=== PATIENT | female | born 1975 | race Caucasian/White ===

== ENCOUNTER 2022-01-02 14:04 | Outpatient (REF) | payer OTHER, SELFPAY ==
[2022-01-02 14:58] LABS: Basophils Absolute Auto 0.03 K/uL (0.00-0.30); Basophils Percent Auto 0.7 % (0.0-3.0); Eosinophils Percent Auto 2.2 % (0.0-7.0); Hematocrit 38.5 % (33.0-51.0); Hemoglobin* 13.1 gm/dL (12.0-16.0); Lymphocytes Absolute Auto 1.92 K/uL (0.90-2.90); Lymphocytes Percent Auto 41.9 % (20-44); Mean Corpuscular HGB Conc 34 gm/dL (32-36); Mean Corpuscular Hemoglobin 32 pg (26-34); Mean Corpuscular Volume 93 fL (80-100); Monocytes Percent Auto 6.1 % (0.0-11.0); Neutrophils Absolute Auto 2.25 K/uL (1.7-7.0); Neutrophils Percent Auto 49.1 % (42.0-72.0); Platelet Count* 309 K/uL (140-440); RDW Coefficient of Variation % 11.6 % (11.5-15.5); Red Blood Count 4.14 m/uL (4.00-5.20); White Blood Count* 4.58 K/uL (4.50-11.00)
[2022-01-02 15:00] LABS: Slide Review Reflex No
[2022-01-02 15:11] LABS: Hemoglobin A1C* 4.99 % (0-5.6)
[2022-01-02 15:16] LABS: Albumin* 4.6 g/dL (3.3-5.0); Chloride* 103 mmol/L (96-114); Potassium* 4.3 mmol/L (3.6-5.1); Sodium* 139 mmol/L (135-149)
[2022-01-02 15:18] LABS: Cholesterol* 239 mg/dL (90-199)
[2022-01-02 15:19] LABS: Alanine Aminotransferase* 9 U/L (4-35); Alkaline Phosphatase* 67 U/L (40-150); Aspartate Amino Transferase* 21 U/L (12-35); Bilirubin Total* 0.4 mg/dL (0.1-1.5); Blood Urea Nitrogen* 13 mg/dL (5-24); Carbon Dioxide* 25 mmol/L (20-32); Creatinine* 0.7 mg/dL (0.5-1.5); Estimated Glomerular Filt Rate 109 ml/min; Glucose* 96 mg/dL (60-115); Total Protein* 7.1 g/dL (6.0-8.3); Triglycerides* 161 mg/dL (40-149)
[2022-01-02 15:20] LABS: Calcium* 9.5 mg/dL (8.4-10.6); HDL Cholesterol* 45 mg/dL (>=50); Iron* 105 ug/dL (37-170); LDL Cholesterol Calculated 162 mg/dL (<100)
[2022-01-02 15:36] LABS: Free T4 Free Thyroxine* 1.28 ng/dL (0.70-1.85)
[2022-01-02 15:37] LABS: Vitamin D 25 Hydroxy* 48 ng/mL (30-80)
[2022-01-02 15:54] LABS: Ferritin* 50.8 ng/mL (6.24-137.0)
[2022-01-02 16:08] LABS: Vitamin B12* 345 pg/mL (243-894)
[2022-01-03 23:21] LABS: TPO Antibody <0.3 IU/mL (0.0-9.0); Thyroglobulin Antibody <0.9 IU/mL (0.0-4.0)
[2022-01-04 00:21] LABS: Insulin, Fasting 7 uIU/mL (3-25)
[2022-01-04 02:12] LABS: Free T3 2.7 pg/mL (2.5-4.3)
== END 2022-01-02 14:05 | disposition home or self-care (01) ==
LOC: LAB 14:04
DX: K59.00 Constipation, unspecified (principal); R53.83 Other fatigue; N92.0 Excessive and frequent menstruation with regular cycle
CPT/HCPCS: 36415; 80053; 80061; 82306; 82607; 82728; 83036; 83525; 83540; 84439; 84443; 84481; 85025

== ENCOUNTER 2023-10-07 07:28 | Outpatient (CLI) | payer OTHER, SELFPAY ==
--- OUTSIDE RECORDS SUMMARY | 2023-10-09 03:49 | XMS_ITS | Clinical Summary ---
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 60 g 3 07/17/2023 Active nystatin (MYCOSTATIN) ointmentIndicati ons:Yeast dermatitis Apply topically to affected area(s) two times daily. 15 g 3 07/17/2023 Active fluconazole (DIFLUCAN) 150 mg tabletIndication s:Yeast dermatitis Take 1 Tablet (150 mg) by mouth one time for 1 dose. Then take the second tab in 4 days if symptoms persist. 2 Tablet 09/08/2023 09/15/2023 Discontinued (Reorder (E-cancel not sent)) fluconazole (DIFLUCAN) 150 mg tabletIndication s:Yeast dermatitis Take 1 Tablet (150 mg) by mouth one time for 1 dose. Then take the second tab in 4 days if symptoms persist. 2 Tablet 09/15/2023 09/15/2023 cephalexin (KEFLEX) 500 mg capsuleIndicatio ns:Yeast dermatitis Take 1 Capsule (500 mg) by mouth four times daily for 7 days. 28 Capsule 09/15/2023 09/22/2023 Active Problems Problem Noted Date Diagnosed Date Plantar fasciitis of right foot 04/23/2017 Plantar fasciitis of left foot 07/02/2015 Anxiety state, unspecified 10/16/2006 Adjustment disorder with mixed anxiety and depre ssed mood 09/14/2006 Encounters Date Type Department Care Team Description 09/15/2023 4:20 PM CDT Office Visit [facility] [address] [place] [address] Tawana Anderson MD Follow Up (Rash under breasts, won't completely go away ) 09/15/2023 Travel 09/08/2023 Telephone [place] [id number] [place] [address] Coty Borjas PA Questions 08/31/2023 9:35 AM CDT Office Visit [facility] [address] [place] [address] Coty Borjas PA Follow Up; Derm Problem 08/31/2023 Travel 07/17/2023 12:55 PM CDT Office Visit [place] [id number] [place] [address] Coty Borjas PA Rash 07/17/2023 Travel from Last 3 Months Family History Medical History Relation Name Comments Hyperlipidemia Father Hypertension Father Heart Disease Maternal Grandfather a ge 56 Diabetes Mother Hypertension Mother Thyroid Disease Mother Heart Disease Paternal Grandfather a ge 55 Cancer-colon Paternal Grandmother Relation Name Status Comments Father Alive Maternal Grandfather (Age 56) Maternal Grandmother (Age 85) Mother Alive Paternal Grandfather (Age 55) Paternal Grandmother (Age 55) Social History Tobacco Use Types Packs/Day Years Used Date Smoking Tobacco: Former Cigarettes 0.3 22 2 000 - 2021 Smokeless Tobacco: Never Tobacco Cessation:Counseling Given: Not Answered Alcohol Use Standard Drinks/Week Comments Yes 3 (1 standard drink = 0.6 oz pur e alcohol) PHQ-2 Answer Date Recorded PHQ-2 TOTAL SCORE 0 07/17/2023 Social Connections Answer Date Recorded Frequency of Communication with Friends and Fami ly 0 08/31/2023 Financial Resource Strain Answer Date R ecorded Difficulty of Paying Living Expenses 3 08/31/2023 Difficulty of Paying Living Expenses Not on file 08/31/2023 Food Insecurity Answer Date Recorded Worried About Running Out of Food in the Last Ye ar 1 08/31/2023 Transportation Needs Answer Date Record ed Lack of Transportation (Medical) 1 08/31/2023 Housing Stability Answer Date Recorded Unable to Pay for Housing in the Last Year 1 08/31/2023 Sex and Gender Information Value Date Recorded Sex Assigned at Not on file Gender Identity Not on file Sexual Orientation Not on file Obstetrics History Last Filed Vital Signs Vital Sign Reading Time Taken Comments Blood Pressure 130/82 09/15/2023 4:45 PM CDT Pulse 88 09/15/2023 4:25 PM CDT Temperature 37.2 ??C (98.9 ??F) 10/17/2015 10:04 AM C DT Respiratory Rate 14 07/02/2015 2:51 PM CDT Oxygen Saturation 99% 09/15/2023 4:25 PM CDT Inhaled Oxygen Concentration - - Weight 78.2 kg (172 lb 4.8 oz) 09/15/2023 4:25 P M CDT Height 168.8 cm (5' 6.46) 07/17/2023 1:00 PM CD T Body Mass Index 27.43 07/17/2023 1:00 PM CDT Plan of Treatment Health Maintenance Due Date Last Done Comments Tdap 11/14/1987 HIV for age 15-65 11/14/1991 Hepatitis C screening for age 18-79 1994 Tetanus booster 1996 Pap test for age 21-65 09/16/2013 1 (Completed [facility] of [facility]) Colonoscopy through age 75 2021 Lipids for age 45-75 2021 Mammogram for age 45-75 2021 COVID-19 vaccine series ( season) 2022 Influenza for age 9-49 11/22/2023 BMI (ht and wt on same day) for age 18+ 07/16/2024 07/17/2023, 09/10/2020, 01/27/2019, Additional history exists Depression screening for age 12+ 07/16/2024 07/17/2023 Pneumococcal series for age 6-64 Aged Out No longer eligible based on patient's age to complete this topic Care Teams Missile Pad Mechanic Relationship Specialty Start Date End Date Pcp, No . PCP - General 08/14/11
== END 2023-10-07 07:29 | disposition home or self-care (01) ==
LOC: NFLDREF 10-09 03:47
PROVIDERS: Visit Provider Physician Assistant Medical
DX: I10 Essential (primary) hypertension (principal); R03.0 Elevated blood-pressure reading, without diagnosis of hypertension; G47.00 Insomnia, unspecified; R51.9 Headache, unspecified; Z13.9 Encounter for screening, unspecified
CPT/HCPCS: 80053; 80061; 82728; 84443

== ENCOUNTER 2023-10-08 14:14 | Emergency (ER) | payer OTHER, SELFPAY ==
[2023-10-08 14:20] VITALS: BP 181/104; PULSE 89; RESP 18; TEMP 36.3; O2SAT 99; BMI 29.4
--- NOTE | 2023-10-08 14:37 | CRLHL7_ITS ---
For Patients: As a result of the Century Cures Act, medical imaging exams and procedure reports are released immediately into your electronic medical record. You may view this report before your referring provider. If you have questions, please contact your health care provider. INDICATION: Headache. TECHNIQUE: CT head without contrast. COMPARISON: None. FINDINGS: CSF spaces: Within normal limits for age. Brain parenchyma and extra-axial spaces: The erwin-white differentiation is normal. No sign of mass, hemorrhage, or midline shift. No extra-axial fluid collection. Skull base and calvarium: Mucosal thickening with trace air-fluid level within the left maxillary sinus. The visualized orbits are grossly unremarkable. No skull fractures. IMPRESSION: 1. No intracranial bleed or mass effect. 2. Left maxillary sinus disease. Please note that all CT scans at this facility use dose modulation, iterative reconstruction, and/or weight-based dosing when appropriate to reduce radiation dose to as low as reasonably achievable. Dictated by Modesto Del Castillo MD @ 10/08/2023 3:36:51 PM (Electronically Signed)
[2023-10-08] MEDS: KETOROLAC 15 MG/ML inj IVP (14:46)
[2023-10-08] MEDS: diphenhydrAMINE 50 MG/ML inj 25 MG IVP (14:46)
[2023-10-08] MEDS: METOCLOPRAMIDE HCL 5 MG/ML INJ 10 MG IVP (14:46)
[2023-10-08] MEDS: LACTATED RINGERS 1000 ML 1,000 ML IV (14:47)
--- NOTE | 2023-10-08 14:53 | ED_ITS ---
HPI - Headache General Date Seen: 10/08/23 Chief Complaint: Headache/Migraine Stated Complaint: headache Time Seen by Provider: 10/08/23 14:27 Source: patient Mode of arrival: ambulatory Limitations: no limitations History of Present Illness HPI Narrative: Patient is a 47-year-old female presenting for a headache. She states headache started about 12:15 today and is in her forehead and temporal regions. Is the 3rd headache she has had in the past week similar to this. Before this she has no history of headaches that were similar. She is scheduled for a MRI next week. Is not having any nausea at this time. States the previous 2 times she took some Aleve to help with her symptoms and they helped. This time she took some for her back pain shortly before the headache started and has not taking anymore. Denies vision changes, weakness, numbness, incontinence, chest pain, shortness of breath, abdominal pain, diarrhea, or constipation. No other concerns noted at this time Related Data Home Medications ?Medication ?Instructions ?Recorded ?Confirmed No Known Home Medications 05/19/22 10/06/23 Allergies Allergy/AdvReac Type Severity Reaction Status Date / Time No Known Drug Allergies Allergy Verified 10/06/23 13:28 Review of Systems Status of ROS: Reports: 10 or more systems reviewed and unremarkable except as noted in History and below PFSH [facility] Medical History Sebaceous cyst ?L72.3 - Sebaceous cyst (ICD-10) Surgical History History of ?Z98.891 - History of uterine scar from previous surgery (ICD-10) Social History Smoking Status: Never smoker Little interest or pleasure in doing things: not at all Feeling down, depressed, or hopeless: not at all Exam Narrative: Exam Narrative: Const: Well-nourished, Well-developed, in mild distress Eyes: PERRL, no conjunctival injection, and symmetrical lids HENT: Atraumatic external nose and ears. Moist mucous membranes. Neck: Symmetric, trachea midline, No thyromegaly. CVS: RRR, No murmurs or gallops. Peripheral pulses 2+ and equal in all extremities RESP: Unlabored respiratory effort. Clear to auscultation bilaterally. GI: Nontender/Nondistended, No rebound or guarding. MSK:Extremities w/o deformity, Normal Active ROM Skin: Warm, Dry. No rashes or lesions. Neuro: Normal Muscle tone, Cranial nerves 2-12 grossly intact, normal [id number], normal gklaed-[id number]-ruds, normal gait, normal strength 5/5 upper lower extremities bilaterally, normal sensation upper and lower extremities bilaterally, normal rapid alternating movements. Psych: Awake, Alert, & Oriented x3. Appropriate mood and affect. Const: Vital Signs, click to edit/add: Vital Signs - 24 hr 10/08/23 14:20 10/08/23 15:13 Temperature 97.4 F L Pulse Rate [Right Pulse Oximeter] 89 Respiratory Rate 18 Blood Pressure [Ri ght Upper Arm] 181/104 H 146/86 H Pulse Oximetry 99 Oxygen Delivery Me thod Room Air Course Vital Signs Vital signs: Initial Vital Signs Temperature 97.4 F L 10/08/23 14:20 Temperature Source Temporal Artery Scan 10/08/23 14:20 Pulse Rate 89 10/08/23 14:20 Pulse Rhythm Regular 10/08/23 14:20 Pulse Strength 3+ Normal 10/08/23 14:20 Respiratory Rate 18 10/08/23 14:20 Blood Pressure 181/104 H 10/08/23 14:20 Blood Pressure Mean 129 H 10/08/23 14:20 Blood Pressure Position Sitting 10/08/23 14:20 Pulse Oximetry 99 10/08/23 14:20 Oxygen Delivery Method Room Air 10/08/23 14:20 Vital Signs Temperature 97.4 F L 10/08/23 14:20 Pulse Rate 89 10/08/23 14:20 Respiratory Rate 18 10/08/23 14:20 Blood Pressure 181/104 H 10/08/23 14:20 Pulse Oximetry 99 10/08/23 14:20 Oxygen Delivery Method Room Air 10/08/23 14:20 Temperature 97.4 F L 10/08/23 14:20 Pulse Rate 89 10/08/23 14:20 Respiratory Rate 18 10/08/23 14:20 Blood Pressure 146/86 H 10/08/23 15:13 Pulse Oximetry 99 10/08/23 14:20 Oxygen Delivery Method Room Air 10/08/23 14:20 Medications Administered Medications: Discontinued Medications Generic Name Dose Route Start Last Admin Trade Name Cherise PRN Reason Stop Dose Admin Diphenhydramine HCl 25 mg 10/08/23 14:37 10/08/23 14:46 Diphenhydramine 50 Mg/Ml Inj IVP 10/08/23 14:38 25 mg ONCE ONE Administration Lactated Ringer's 1,000 mls @ 1,000 mls/hr 10/08/23 14:37 10/08/23 15:40 Lactated Ringers 1000 Ml IV 10/08/23 15:36 Infused .Q1H ONE Infusion Ketorolac Tromethamine 15 mg 10/08/23 14:37 10/08/23 14:46 Ketorolac 15 Mg/Ml Inj IVP 10/08/23 14:38 15 mg ONCE ONE Administration Metoclopramide HCl 10 mg 10/08/23 14:37 10/08/23 14:46 Metoclopramide Hcl 5 Mg/Ml Inj IVP 10/08/23 14:38 10 mg ONCE ONE Administration MDM - Headache MDM Narrative Medical decision making narrative: Patient is a 47-year-old female presenting to the emergency department for headache. The headache has been going on for the past few hours. Has had similar episodes in the past week. Will do a CT scan at this time considering the the relatively new frequency of these headaches. Also give her a migraine cocktail. She is feeling much better after the migraine cocktail. CT scan of the head returned showing no concerning abnormalities as reviewed by myself and the radiologist. She does doing well be discharged home. She agrees with this plan Imaging Data CT scan - head: Attestation: I have reviewed the pertinent imaging results. Radiologist's impression: 1. No intracranial bleed or mass effect. 2. Left maxillary sinus disease. Please note that all CT scans at this facility use dose modulation, iterative reconstruction, and/or weight-based dosing when appropriate to reduce radiation dose to as low as reasonably achievable. Dictated by Modesto Del Castillo MD @ 10/08/2023 3:36:51 PM Discharge Plan Discharge Clinical Impression: Headache Qualifiers: Headache type: unspecified Headache chronicity pattern: unspecified pattern Intractability: not intractable Qualified Code(s): R51.9 - Headache, unspecified Patient Disposition: Home, Self-Care Condition: Improved Instructions: Acute Headache (DC) Additional Instructions: Take Tylenol and ibuprofen for pain. Return to emergency department for new or worsening symptoms. Keep your previously scheduled MRI appointment Prescriptions: No Action No Known Home Medications Follow Up/Referrals: Provider,Not a Local [Primary Care Provider] - Stand Alone Forms: [email or web address] Info Instructions
[2023-10-08 15:13] VITALS: BP 146/86
== END 2023-10-08 15:58 | disposition home or self-care (01) ==
PROVIDERS: Emergency Provider Student in an Organized Health Care Education/Training Program
DX: R51.9 Headache, unspecified (principal)
CPT/HCPCS: 70450; 96374; 96375; 99283; 99284; J1200; J1885; J2765; J7120

== ENCOUNTER 2023-10-13 07:05 | Outpatient (CLI) | payer OTHER, SELFPAY ==
--- OUTSIDE RECORDS SUMMARY | 2023-10-13 07:07 | XMS_ITS | Clinical Summary ---
Author Organization [facility] [facility] Address [place], [place] [address] Care Team Providers Care Game Protector Name Role Phone Pcp, No Primary Care [...] Description 09/15/2023 4:20 PM CDT Office Visit [facility] [address] [place] [address] Tawana Anderson MD Follow Up (Rash under breasts, won't completely go away ) 09/15/2023 Travel 09/08/2023 Telephone [place] [phone] [place] [address] Coty Borjas PA Questions 08/31/2023 9:35 AM CDT Office Visit [facility] [address] [place] [address] Coty Borjas PA Follow Up; Derm Problem 08/31/2023 Travel 07/17/2023 12:55 PM CDT Office Visit [place] [phone] [place] [address] Coty Borjas PA Rash 07/17/2023 Travel from [...] age 21-65 09/16/2013 1 ([facility]) Colonoscopy through age 75 2021 Lipids for [...] age to complete this topic Care Teams Game Protector Relationship Specialty Start Date End Date Pcp, No . PCP - General 08/14/11
--- NOTE | 2023-10-13 07:15 | CRLHL7_ITS ---
For Patients: As a result of the Century Cures Act, medical imaging exams and procedure reports are released immediately into your electronic medical record. You may view this report before your referring provider. If you have questions, please contact your health care provider. Indication: Headaches Technique: Multiplanar, multisequence MRI of the brain obtained without contrast. Comparison: CT head 10/08/2023 Findings: The ventricles and cortical sulci are age-appropriate in size and configuration. No midline shift or mass effect. No acute intracranial hemorrhage or abnormal extra-axial fluid collection. No evidence of acute/subacute ischemia. White matter signal appears normal limits. Midline structures are unremarkable. The major expected intracranial flow voids are visualized. Included bone marrow signal is unremarkable. No suspicious findings in the regional soft tissues. Mucous retention cysts/polyps at the left inferior maxillary sinus. No evidence of obstructive paranasal sinus disease. 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 No mastoid effusion. Unremarkable orbits. Impression: Unremarkable MRI brain. No evidence of acute intracranial abnormality. Dictated by Kylie Blair MD @ 10/13/2023 3:53:43 PM (Electronically Signed)
== END 2023-10-13 07:06 | disposition home or self-care (01) ==
LOC: MRI 07:06
PROVIDERS: PCP Physician Assistant Medical; Visit Provider Physician Assistant Medical
DX: R51.9 Headache, unspecified (principal)
CPT/HCPCS: 70551